=== PATIENT | male | born 2000 | race Caucasian/White ===

== ENCOUNTER 2024-10-15 18:52 | Emergency (ER) | payer MEDICAID ==
[~2024-10-15] VITALS: Ht 172.7 cm; Wt 61.4 kg
[2024-10-15 19:21] VITALS: BP 123/75; PULSE 70; RESP 18; TEMP 98.2; O2SAT 99
[2024-10-15] MEDS: FLUORESCEIN SODIUM 1 MG STRIP OD ONE (22:12)
[2024-10-15] MEDS: PROPARACAINE HCL 0.5% 15 ML OPHTHALMIC SOLUTION OS ONE (22:12)
== END 2024-10-15 22:31 | disposition home or self-care (01) ==
LOC: EMS 18:55
DX: H11.002 Unspecified pterygium of left eye (principal)
CPT/HCPCS: 99283